=== PATIENT | female | born 1955 ===

== ENCOUNTER 2017-11-11 19:58 | Emergency (ER) | payer OTHER ==
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
[2017-11-11 22:08] VITALS: BP 174/93
== END 2017-11-11 22:07 | disposition home or self-care (01) ==
DX: T81.4XXA Infection following a procedure, initial encounter (principal); I10 Essential (primary) hypertension; Z87.891 Personal history of nicotine dependence; Y82.9 Unspecified medical devices associated with adverse incidents